=== PATIENT | female | born 1955 | race Caucasian/White ===

== ENCOUNTER 2016-12-03 07:25 | Day surgery (SDC) | payer MEDICAID ==
[~2016-12-03 07:25] MED LIST: ALAVERT10 MG PO; AMBIEN PAK10 MG PO; BISA-LAX5 M1 PO; ISONIAZID300 MG PO; LISINOPRIL10 MG PO; NEURO-K50 MG PO; SIMVASTATIN40 MG PO
[2016-12-03] MEDS ORDERED: TRAZODONE HCL150 M1 PO (08:24)
[2016-12-03] MEDS ORDERED: LINZESS290 MC1 PO (08:25)
[2016-12-03] MEDS ORDERED: NAPROSYN500 M1 PO (08:26)
[2016-12-03] MEDS ORDERED: FLAGYL500 M1 PO (08:26)
[2016-12-03] MEDS ORDERED: OXYBUTYNIN CHLO10 M1 PO (08:27)
[2016-12-03] MEDS ORDERED: PRINIVIL5 M1 PO (08:27)
[2016-12-03] MEDS ORDERED: ZOCOR40 M1 PO (08:28)
[2016-12-03] MEDS ORDERED: FEOSOL325 M1 PO (08:28)
[2016-12-03] MEDS ORDERED: MULTIPLE VITAM1 EAC3 PO (08:29)
[2016-12-03] MEDS ORDERED: GLUCOPHAGE850 M1 PO (08:29)
[2016-12-03 10:02] LABS: CSF GLUCOSE 97 mg/dl (40-75)
[2016-12-03 11:18] LABS: CSF APPEARANCE CLEAR (CLEAR); CSF COLOR COLORLESS (COLORLESS); CSF TUBE NUMBER CSF TUBE 3
[2016-12-03 11:19] LABS: CSF RBC CT 1 cmm (0); CSF WBC CT 2 cmm (0-10)
== END 2016-12-03 11:30 ==
LOC: SHSC 07:25
PROVIDERS: Psychiatry & Neurology Neurology
PROC: 009U3ZX Drainage of Spinal Canal, Percutaneous Approach, Diagnostic (ICD-10-PCS; principal; 2016-12-03)
DX: H47.10 Unspecified papilledema (principal); H47.019 Ischemic optic neuropathy, unspecified eye; R53.1 Weakness; Z79.899 Other long term (current) drug therapy
CPT/HCPCS: J7030